=== PATIENT | male | born 1985 | race Caucasian/White ===

== ENCOUNTER 2021-02-12 13:32 | Outpatient (REF) | payer BC, SELFPAY | END 2021-02-12 13:33 | disposition home or self-care (01) | LOC: HO.LAB 13:32 | PROVIDERS: Visit Provider Internal Medicine | DX: Z20.822 Contact with and (suspected) exposure to COVID-19 (principal) | CPT/HCPCS: C9803; U0003; U0005 ==

== ENCOUNTER 2021-09-15 09:33 | Outpatient (REF) | payer BC, SELFPAY ==
[2021-09-15 10:27] LABS: Hematocrit 44.2 % (42.0-52.0); Hemoglobin 14.6 g/dl (14.0-18.0); Mean Corpuscular Hemoglobin 28.6 pg (27.0-33.0); Mean Corpuscular Volume 86.7 fL (80.0-98.0); Mean Platelet Volume 11.1 fL (9.4-12.4); Platelet Count 236 X10*3/uL (160-400); Red Cell Distribution Width 12.4 % (11.0-16.0); White Blood Count 9.2 X10*3/uL (4.8-10.8)
[2021-09-15 10:56] LABS: Estimated Average Glucose 103 mg/dL; Hemoglobin A1c % 5.2 %
[2021-09-15 11:12] LABS: Alanine Aminotransferase 49 U/L (0-40); Albumin Level 4.5 g/dL (3.5-5.0); Alkaline Phosphatase 87 U/L (39-117); Anion Gap 11 (12-20); Aspartate Amino Transferase 41 U/L (5-37); Bilirubin Total 0.5 mg/dL (0.0-1.0); Blood Urea Nitrogen 9 mg/dL (9-16); Calcium 9.5 mg/dL (8.4-10.2); Carbon Dioxide 25 mmol/L (22-29); Chloride 106 mmol/L (96-108); Cholesterol 182 mg/dL; Estimated Glomerular Filt Rate > 60; Glucose Fasting 93 mg/dL (60-99); HDL Cholesterol 39 mg/dL; LDL Cholesterol Calculated 129 mg/dl; Potassium 4.3 mmol/L (3.3-5.1); Sodium 138 mmol/L (135-145); Total Protein 7.4 g/dL (6.5-8.0); Triglycerides 74 mg/dL
[2021-09-15 11:35] LABS: TSH reflex Free T4 0.59 uIU/mL (0.32-4.0)
== END 2021-09-15 09:34 | disposition home or self-care (01) ==
LOC: HO.LAB 09:33
PROVIDERS: PCP Physician Assistant; Visit Provider Physician Assistant
DX: Z13.220 Encounter for screening for lipoid disorders (principal); Z13.29 Encounter for screening for other suspected endocrine disorder
CPT/HCPCS: 36415; 80053; 80061; 83036; 84443; 85027

== ENCOUNTER 2021-10-08 15:50 | Outpatient (REF) | payer BC, SELFPAY ==
--- NOTE | ~2021-10-08 | US_ITS ---
EXAMINATION: US TARGETED RIGHT ANTERIOR PROXIMAL-MID THIGH. CLINICAL INFORMATION: Localized swelling/mass and lump. COMPARISON: None TECHNIQUE: Targeted ultrasound of the right anterior proximal to mid thigh was performed corresponding to the site of the palpable lumps as was pointed out by the patient at the time of the examination. FINDINGS: At the proximal thigh underneath the subcutaneous fat along the intermuscular plane, there is an ellipsoidal echogenic solid-appearing avascular mass identified oriented parallel to the skin, measures 1.9 x 1.8 x 0.8 cm. At the mid thigh anteriorly underneath the subcutaneous fat, along the intermuscular plane, similar to the previously described abnormality, there is a second circumscribed avascular hypoechoic mass identified oriented parallel to the skin, measures 1.4 x 1.9 x 0.6 cm. There are no abnormal lymph nodes identified around these masses. No evidence of any abnormal fluid collection. US/US extremity nonvascular currie IMPRESSION: Corresponding to the palpable lump at the right anterior proximal to mid thigh, circumscribed solid avascular ellipsoidal masses identified, measures approximately 1.9 cm each at their maximum dimension, indeterminate etiology, may represent mesenchymal neoplasm including lipoma or other solid mesenchymal tumor. Surgical consultation for possible excisional biopsy and/or follow-up imaging surveillance to ensure stability as appropriate is recommended.
== END 2021-10-08 15:51 | disposition home or self-care (01) ==
LOC: HO.US 15:50
PROVIDERS: Visit Provider Physician Assistant
DX: R22.43 Localized swelling, mass and lump, lower limb, bilateral (principal)
CPT/HCPCS: 76882

== ENCOUNTER 2022-06-01 09:11 | Emergency (ER) | payer BC, SELFPAY ==
--- NOTE | ~2022-06-01 | CT_ITS ---
EXAMINATION: CT ABDOMEN AND PELVIS WITH CONTRAST CLINICAL INFORMATION: Right flank/testicular pain and hematuria. COMPARISON: None TECHNIQUE: Multidetector volumetric images were obtained from the superior aspect of the liver through the pubic symphysis following administration 85 mL of Omnipaque 350 intravenous contrast. Sagittal and coronal reformatted images were obtained on the technologist's workstation. Oral contrast: No This CT examination was performed using dose optimization techniques as appropriate, variously including the following: *Automated exposure control *Adjustment of mA and/or kV according to patient size (this includes techniques or standardized protocols for targeted exams where dose is matched to indication/reason for exam; i.e. extremities or head) *Use of iterative reconstruction technique DLP: 501 mGy-cm FINDINGS: LUNG BASES: The visualized lung bases are unremarkable. LIVER, GALLBLADDER, AND BILIARY TREE: The liver is normal in size, shape, and attenuation. No focal hepatic lesion or biliary ductal dilatation is present. The gallbladder is unremarkable with no evidence of radiopaque gallstones, gallbladder wall thickening, or obvious pericholecystic inflammatory changes. PANCREAS: Unremarkable. SPLEEN: Unremarkable. ADRENAL GLANDS: Unremarkable. KIDNEYS AND URETERS: The kidneys are normal in size, shape, and attenuation. No hydronephrosis, hydroureter, or calculi seen. No perinephric stranding. There are small hypodense nonenhancing cyst upper pole right kidney BLADDER: There is mild bladder wall thickening without any enhancing mass or radiopaque calculi. GASTROINTESTINAL TRACT: The small and large bowel are unremarkable. The appendix is unremarkable. ABDOMINAL WALL: No significant hernia is appreciated. LYMPH NODES: No abnormal size inguinal or pelvic lymph nodes seen. VASCULAR: Unremarkable. PELVIC VISCERA: No pelvic mass visualized. There are surgical yefri superior to the urinary bladder along the anterior bladder wall likely previous intervention. No abnormal size inguinal or pelvic lymph nodes seen. OSSEOUS STRUCTURES: Unremarkable. CT/CT abdomen pelvis w IV con IMPRESSION: 1. No acute intra-abdominal process seen. 2. No radiopaque urolith or hydroureteronephrosis. Small cyst upper pole right kidney. Fleischner guidelines were followed.
[2022-06-01 09:19] VITALS: BP 123/79; PULSE 80; RESP 18; TEMP 36.4; O2SAT 98; BMI 29.9
--- NOTE | 2022-06-01 09:25 | ED.MALEGU ---
HPI - Male Genitourinary General Chief complaint: Urogenital-Male Stated complaint: Blood in Urine Pain Time Seen by Provider: 06/01/22 09:24 Source: patient Mode of arrival: ambulatory Limitations: no limitations History of Present Illness HPI Narrative: 36-year-old male who is healthy presents with tactile fever, chills, cough, runny nose for 2 days. Yesterday he started to developed right-sided flank pain with radiation to the right testicle and into the rectum with pressure and discomfort. This morning had 1 episode of hematuria but no other urinary symptoms. No penile discharge, rashes or lesions. No nausea, vomiting, diarrhea, constipation. Patient reports he is sexually active with 1 female partner. No new sexual partners. Related Data Previous Rx's Medication Instructions Recorded ibuprofen 600 mg tablet 600 mg PO Q6H PRN pain #20 tabs 06/01/22 levofloxacin 750 mg tablet 750 mg PO DAILY 7 days #7 tabs 06/01/22 phenazopyridine 200 mg tablet 200 mg PO TID PRN pain 6 doses #15 06/01/22 (Pyridium) tabs Allergies Allergy/AdvReac Type Severity Reaction Status Date / Time No Known Allergies Allergy Verified 09/22/21 15:21 [No Known Allergies*] Review of Systems Review of Systems: Yes all other systems are reviewed and are negative Constitutional: Constitutional: Reports no additional constitutional complaints, Denies body ache(s), Reports chills, Reports fever(s), Denies headache(s) and Denies weakness Eyes: Eyes: Reports no additional eye complaints and Denies change in vision ENT: Reports system reviewed and no additional complaints, except as documented, Denies dizziness, Denies headache(s), Denies nasal congestion, Reports nasal discharge and Denies neck pain Cardiovascular: Cardiovascular: Reports no additional cardiovascular complaints, Denies chest pain, Denies leg edema and Denies dyspnea Respiratory: Respiratory: Reports no additional respiratory complaints, Reports cough and Denies dyspnea Gastrointestinal: Gastrointestinal: Reports no additional gastrointestinal complaints, Reports abdominal pain, Denies diarrhea, Denies nausea and Denies vomiting Comments: +rectal pain/pressure Genitourinary: Genitourinary: Reports hematuria, Denies dysuria, Reports flank pain, Denies penile discharge, Denies testicular mass, Reports testicular pain, Denies urinary frequency, Denies urinary hesitancy, Denies urinary incontinence and Denies urinary urgency Musculoskeletal: Musculoskeletal: Reports no additional musculoskeletal complaints, Reports back pain, Denies arthralgias, Denies joint swelling, Denies neck pain, Denies numbness and Denies tingling Integumentary/Breasts: Skin/Breast: Reports system reviewed and no additional complaints, except as docu and Denies rash Neurologic: Reports system reviewed and no additional complaints, except as documented, Denies Abnormal speech present, Denies dizziness, Denies headache(s), Denies numbness, Denies tingling and Denies weakness PMF Past Medical History Attestation statement: The following information was validated with the patient. Source: old records reviewed and nursing notes reviewed Family History Family History Mother No problems noted. Father No problems noted. Social History Social History Housing: House Alcohol intake: current Alcohol intake frequency: a few times a month Alcohol type: beer Patient Tobacco Use Status: Never used Tobacco e-Cigarette/Vaping Use: Never Used Substance Use Type: Marijuana Advance Directives: No Advance Directives Information Provided: Yes service: No Current occupational status: employed Current occupation: [employer] Physical Exam Vital Signs: Vital Signs: Last Vital Signs Temp 98.2 F 06/01/22 12:00 Pulse 68 06/01/22 12:00 Resp 16 06/01/22 12:00 BP 108/55 L 06/01/22 12:00 Pulse Ox 97 06/01/22 12:00 O2 Del Method 06/01/22 12:00 BMI result Body Mass Index 29.9 Const: General: cooperative, healthy appearing, comfortable and no acute distress Orientation/consciousness: patient oriented x3 Limitations: no limitations HEENT: Head: Yes normal to inspection Ears: hearing grossly normal bilaterally and TM's normal bilaterally General nose exam: Normal external nose present Face and sinus: Yes normal facial exam Mouth: Normal oral and palatal mucosa present Throat: Yes posterior oropharynx normal, Yes tonsils normal and Yes uvula midline Eyes: General: appearance normal, both eyes and all related structures Pupils: Equal, round and reactive pupils present Neck: Neck: Yes normal visual inspection, Yes full ROM, Yes no lymphadenopathy and Yes no meningeal signs Chest: Chest palpation & inspection: normal inspection of the chest Resp: Effort & Inspection: normal respiratory effort Auscultation: clear to auscultation bilaterally Cardio: Rate: regular rate Rhythm: regular rhythm Peripheral pulses: Peripheral pulses 2+ throughout GI: Inspection: Yes normal to inspection Palpation (GI): Soft to palpation and Tenderness to palpation present (GI) (right side abdomen-no rebound or guarding) Auscultation: normal bowel sounds : General: Yes CVA tenderness (R CVAT) Back/Spine/Pelvis: Back: CVA tenderness (R CVAT) Thoracic/Lumbar Spine: thoracic and lumbar spine normal to inspection Skin: General skin exam: no rashes or lesions noted Neuro: General: patient oriented x3, no meningeal signs, no focal motor deficits and normal sensation to monofilament Cranial nerves: Yes Equal, round and reactive pupils present Cognition (Neuro): normal cognition Speech: No Abnormal speech present Gait exam (Neuro): Normal gait present Motor exam (neuro): 5/5 motor strength present throughout Extrem: General: Yes normal to inspection, Yes no pedal edema and Yes no calf tenderness Course Course Course Narrative: 1127-UA is consistent UTI. At this time infection is suspected. Antibiotics ordered Reevaluation(s) Reevaluation #1: 1330-CT of the abdomen and pelvis shows no acute finding. There are surgical yefri seen. Patient reports he had surgery as an and the lower abdomen but he is unsure what type of surgery. He did have recurrent UTIs as an infant as well. No signs of prostatitis seen on CT. Patient will be treated for UTI and possible early pyelonephritis with complaints of right flank pain. Patient overall nontoxic appearing pain is resolved after 1 dose of Toradol. Patient tolerating p.o.. No fever here. Will discharge home with course of antibiotics. Reviewed worrisome signs and symptoms of when to return to the emergency department. Comfortable discharge home. Medications Administered Discontinued Medications Generic Name Dose Route Start Last Admin Trade Name Freq PRN Reason Stop Dose Admin Sodium Chloride 1,000 mls @ 999 mls/hr 06/01/22 09:34 06/01/22 12:49 Ns IV 06/01/22 10:34 Infused .Q1H1M STA Infusion Ceftriaxone Sodium 1 gm/ 50 mls @ 100 mls/hr 06/01/22 11:27 06/01/22 12:49 Sodium Chloride IV 06/01/22 11:56 Infused ONCE ONE Infusion Iohexol 85 ml 06/01/22 11:39 06/01/22 11:39 Iohexol 350 Mg/Ml 75 Ml Infus..Btl IV 06/01/22 11:40 85 ml ONCE ONE Administration Ketorolac Tromethamine 30 mg 06/01/22 09:34 06/01/22 09:52 Ketorolac Tromethamine 30 Mg/Ml Vial IVPUSH 06/01/22 09:35 30 mg ONCE ONE Administration Medical Decision Making Medical Decision Making MDM Narrative: 36-year-old male here with 2-3 days of flu-like symptoms with right-sided flank pain with radiation to the right abdomen and right testicle with rectal pain and pressure since yesterday with an episode of hematuria this morning. Will need labs, UA, CT, COVID screen Differential Diagnosis Differential Diagnoses: The differential diagnosis associated with the presentation includes Consider prostatitis, renal colic Low concern for torsion Lab Data [facility] Lab Attestation statement: I reviewed the patient's lab results. Result Diagrams: 06/01/22 09:41 06/01/22 09:41 Labs: Lab Results 06/01/22 06/01/22 06/01/22 Range/Units 09:38 09:41 09:41 WBC 12.0 H (4.8-10.8) X10*3/uL RBC 5.03 (4.60-5.80) X10*6/uL Hgb 14.6 (14.0-18.0) g/dl Hct 43.2 (42.0-52.0) % MCV 85.9 (80.0-98.0) fL MCH 29.0 (27.0-33.0) pg MCHC 33.8 (31.0-36.0) g/dl RDW 12.3 (11.0-16.0) % Plt Count 216 (160-400) X10*3/uL MPV 11.0 (9.4-12.4) fL Absolute Nucleated RBC 0.000 (0.0-0.012) X10*3/uL Nucleated RBC % (auto) 0.0 (0.0-0.2) /100WBC Sodium 137 (135-145) mmol/L Potassium 3.8 (3.3-5.1) mmol/L Chloride 104 (96-108) mmol/L Carbon Dioxide 29 (22-29) mmol/L Anion Gap 8 L (12-20) BUN 9 (9-16) mg/dL Creatinine 0.88 (0.5-1.4) mg/dL Estim Creat Clear Calc 114.1 Estimated GFR > 60 Random Glucose 106 (60-115) mg/dL Lactic Acid (0.5-2.0) mmol/L Calcium 9.3 (8.4-10.2) mg/dL Total Bilirubin 0.9 (0.0-1.0) mg/dL Direct Bilirubin 0.3 (0.0-0.5) mg/dL AST 16 (5-37) U/L ALT 34 (0-40) U/L Alkaline Phosphatase 76 (39-117) U/L Total Creatine Kinase (38-174) U/L Total Protein 7.2 (6.5-8.0) g/dL Albumin 4.4 (3.5-5.0) g/dL Urine Color Urine Appearance Urine pH (5.0-9.0) Ur Specific Henderson (1.005-1.025) Urine Protein (Neg-Trace) mg/dL Urine Glucose (UA) (Negative) mg/dL Urine Ketones (Negative) mg/dL Urine Blood (Negative) Urine Nitrite (Negative) Ur Leukocyte Esterase (Negative) Urine RBC (0-2) /HPF Urine WBC (0-5) /HPF Ur Squamous Epith Cells (0-2) /HPF Urine Bacteria (None Seen) Hyaline Casts (0-2) /LPF COVID-19 (EULALIO) Negative (Negative) COVID-19 Clin Com See Note 06/01/22 06/01/22 06/01/22 Range/Units 09:41 09:41 10:49 WBC (4.8-10.8) X10*3/uL RBC (4.60-5.80) X10*6/uL Hgb (14.0-18.0) g/dl Hct (42.0-52.0) % MCV (80.0-98.0) fL MCH (27.0-33.0) pg MCHC (31.0-36.0) g/dl RDW (11.0-16.0) % Plt Count (160-400) X10*3/uL MPV (9.4-12.4) fL Absolute Nucleated RBC (0.0-0.012) X10*3/uL Nucleated RBC % (auto) (0.0-0.2) /100WBC Sodium (135-145) mmol/L Potassium (3.3-5.1) mmol/L Chloride (96-108) mmol/L Carbon Dioxide (22-29) mmol/L Anion Gap (12-20) BUN (9-16) mg/dL Creatinine (0.5-1.4) mg/dL Estim Creat Clear Calc Estimated GFR Random Glucose (60-115) mg/dL Lactic Acid 0.8 (0.5-2.0) mmol/L Calcium (8.4-10.2) mg/dL Total Bilirubin (0.0-1.0) mg/dL Direct Bilirubin (0.0-0.5) mg/dL AST (5-37) U/L ALT (0-40) U/L Alkaline Phosphatase (39-117) U/L Total Creatine Kinase 85 (38-174) U/L Total Protein (6.5-8.0) g/dL Albumin (3.5-5.0) g/dL Urine Color Yellow Urine Appearance Clear Urine pH 6.5 (5.0-9.0) Ur Specific Henderson 1.010 (1.005-1.025) Urine Protein Negative (Neg-Trace) mg/dL Urine Glucose (UA) Negative (Negative) mg/dL Urine Ketones Negative (Negative) mg/dL Urine Blood Moderate (2+) H (Negative) Urine Nitrite Negative (Negative) Ur Leukocyte Esterase Moderate (2+) H (Negative) Urine RBC 11-20 H (0-2) /HPF Urine WBC 21-50 H (0-5) /HPF Ur Squamous Epith Cells 0-2 (0-2) /HPF Urine Bacteria None Seen (None Seen) Hyaline Casts 0-2 (0-2) /LPF COVID-19 (EULALIO) (Negative) COVID-19 Clin Com Independent Interpretation I performed an independent interpretation of an: CT Scan (CT abdomen pelvis shows no acute finding-I independently reviewed the CT scan myself) Radiology Impression Discussion of test interpretation with radiology: I have reviewed the radiologist's reading. Radiologist Impression: FINDINGS: LUNG BASES: The visualized lung bases are unremarkable.? LIVER, GALLBLADDER, AND BILIARY TREE: The liver is normal in size, shape, and attenuation. No focal hepatic lesion or biliary ductal dilatation is present. The gallbladder is unremarkable with no evidence of radiopaque gallstones, gallbladder wall thickening, or obvious pericholecystic inflammatory changes.? PANCREAS: Unremarkable.? SPLEEN: Unremarkable.? ADRENAL GLANDS: Unremarkable.? KIDNEYS AND URETERS: The kidneys are normal in size, shape, and attenuation. No hydronephrosis, hydroureter, or calculi seen. No perinephric stranding. There are small hypodense nonenhancing cyst upper pole right kidney BLADDER: There is mild bladder wall thickening without any enhancing mass or radiopaque calculi.? GASTROINTESTINAL TRACT: The small and large bowel are unremarkable. The appendix is unremarkable.? ABDOMINAL WALL: No significant hernia is appreciated.? LYMPH NODES: No abnormal size inguinal or pelvic lymph nodes seen. VASCULAR: Unremarkable. PELVIC VISCERA: No pelvic mass visualized. There are surgical yefri superior to the urinary bladder along the anterior bladder wall likely previous intervention. No abnormal size inguinal or pelvic lymph nodes seen. OSSEOUS STRUCTURES: Unremarkable.? CT/CT abdomen pelvis w IV con IMPRESSION: 1.? No acute intra-abdominal process seen. 2.? No radiopaque urolith or hydroureteronephrosis. Small cyst upper pole right kidney. ? Independent Historian Clinical information obtained from an independent historian. History obtained from or confirmed by: Spouse Discharge Plan Discharge Clinical Impression: Urinary tract infection, Pyelonephritis Patient Disposition: Home, Self-Care Instructions: Urinary Tract Infection in Men (ED), Kidney Infection (ED) Additional Instructions: Increase fluids, rest Your CT scan shows no signs of kidney stone. You do have a UTI. You likely have an early kidney infection. Start taking her antibiotics tomorrow. Take the pain medication as needed. Return for any worsening symptoms. Prescriptions: New levofloxacin 750 mg tablet 750 mg PO DAILY 7 Days Qty: 7 0RF phenazopyridine [Pyridium] 200 mg tablet 200 mg PO TID PRN (Reason: pain) Qty: 15 0RF ibuprofen 600 mg tablet 600 mg PO Q6H PRN (Reason: pain) Qty: 20 0RF Referrals: Seb Gomez PA-C [Primary Care Provider] - 1 week Stand Alone Forms: Work/School Release Interventions: ED Discharge Assessment Last Done: 06/01/22 14:01 Discharge Date/Time: 06/01/22 14:02
[2022-06-01] MEDS: 0.9 % Sodium Chloride 1,000 ML 999 ML IV (09:52)
[2022-06-01] MEDS: Ketorolac Tromethamine 30 MG/ML VIAL IVPUSH (09:52)
[2022-06-01 09:57] LABS: Hematocrit 43.2 % (42.0-52.0); Hemoglobin 14.6 g/dl (14.0-18.0); Mean Corpuscular HGB Conc 33.8 g/dl (31.0-36.0); Mean Corpuscular Volume 85.9 fL (80.0-98.0); Platelet Count 216 X10*3/uL (160-400); Red Blood Count 5.03 X10*6/uL (4.60-5.80); Red Cell Distribution Width 12.3 % (11.0-16.0)
[2022-06-01 10:07] LABS: Lactic Acid 0.8 mmol/L (0.5-2.0)
[2022-06-01 10:10] LABS: COVID-19 Test Negative (Negative); IDNOW Serial# 16C4AD1C
[2022-06-01 10:11] LABS: Alanine Aminotransferase 34 U/L (0-40); Albumin Level 4.4 g/dL (3.5-5.0); Alkaline Phosphatase 76 U/L (39-117); Anion Gap 8 (12-20); Aspartate Amino Transferase 16 U/L (5-37); Bilirubin Direct 0.3 mg/dL (0.0-0.5); Bilirubin Total 0.9 mg/dL (0.0-1.0); Blood Urea Nitrogen 9 mg/dL (9-16); Calcium 9.3 mg/dL (8.4-10.2); Carbon Dioxide 29 mmol/L (22-29); Chloride 104 mmol/L (96-108); Creatinine Clr Calc Pharmacy 114.1; Estimated Glomerular Filt Rate > 60; Glucose Random 106 mg/dL (60-115); Potassium 3.8 mmol/L (3.3-5.1); Sodium 137 mmol/L (135-145); Total Protein 7.2 g/dL (6.5-8.0)
[2022-06-01 11:09] LABS: Appearance Urine Clear; Color Urine Yellow; Glucose Urine UA Negative (Negative); Leukocyte Esterase Urine Moderate (2+) (Negative); Nitrite Urine Negative (Negative); PH 6.5 (5.0-9.0); UMIC TRIGGER UACC YES; Urine Blood Moderate (2+) (Negative); Urine Ketones Negative (Negative); Urine Protein Negative (Neg-Trace)
[2022-06-01 11:14] LABS: Bacteria Urine None Seen (None Seen); Hyaline Casts Urine 0-2 /LPF (0-2); Squamous Epithelial Cell Urine 0-2 /HPF (0-2); UACC Culture Trigger YES; WBC Urine 21-50 /HPF (0-5)
[2022-06-01] MEDS: iohexoL 350 MG/ML 75 ML INFUS..BTL 85 ML IV (11:39)
[2022-06-01] MEDS: cefTRIAXone sodium 1 GM in 0.9 % Sodium Chloride 50 ML IV (11:50)
[2022-06-01 12:00] VITALS: BP 108/55; PULSE 68; RESP 16; TEMP 36.8; O2SAT 97
[2022-06-01 15:10] LABS: CT PCR NOT DETECTED (Not Detect.); NG PCR NOT DETECTED (Not Detect.)
== END 2022-06-01 14:02 | disposition home or self-care (01) ==
PROVIDERS: Nurse Practitioner Family; Emergency Provider Emergency Medicine Emergency Medical Services; PCP Physician Assistant
DX: N39.0 Urinary tract infection, site not specified (principal); N12 Tubulo-interstitial nephritis, not specified as acute or chronic; Z20.822 Contact with and (suspected) exposure to COVID-19; F12.90 Cannabis use, unspecified, uncomplicated
CPT/HCPCS: 0353U; 36415; 74177; 80048; 80076; 81001; 81003; 82550; 83605; 85027; 87040; 87086; 87635; 96361; 96374; 96375; 99284; J0696; J1885; Q9967

== ENCOUNTER 2022-06-21 15:47 | Outpatient (REF) | payer BC, SELFPAY ==
--- NOTE | ~2022-06-21 | US_ITS ---
EXAMINATION: US SCROTUM CLINICAL INFORMATION: Right posterior scrotum/perineum pressure. Lower abdominal pain.. COMPARISON: 03/27/2019 TECHNIQUE: A sonogram of the scrotum was performed assessing rodriguez-scale appearance and color Doppler flow. Spectral Doppler analysis of the arterial and venous flow were performed in the testes bilaterally. FINDINGS: RIGHT: Right testicle measures 4.4 x 2.3 x 3 cm, volume 15.8 mL. No focal testicular parenchymal lesions are visualized. Single calcification again noted in the right testicle laterally. Spectral Doppler analysis of the arterial and venous flow is normal in the right testis. Right epididymal head is normal in size. No right hydrocele is seen. Small varicocele present. Right epididymal Doppler flow is normal. No focal abnormality in the described area of pain. LEFT: Left testicle measures 4.2 x 2.3 x 2.9 cm, volume 14.1 mL. No focal testicular parenchymal lesions are visualized. A single small calcification is again noted. Spectral Doppler analysis of the arterial and venous flow is normal in the left testis. Left epididymal head is normal in size. Small varicocele present. Small complex hydrocele with septations. Left epididymal Doppler flow is normal. US/US scrotum IMPRESSION: Small bilateral varicoceles. Small complex left hydrocele with septations. No focal abnormality in the region of concern.
== END 2022-06-21 15:48 | disposition home or self-care (01) ==
LOC: HO.US 15:47
PROVIDERS: PCP Physician Assistant; Visit Provider Nurse Practitioner Family
DX: R10.30 Lower abdominal pain, unspecified (principal)
CPT/HCPCS: 76870

== ENCOUNTER → 2022-08-05 08:49 | Outpatient (BNVA) | payer BC, SELFPAY | PROVIDERS: PCP Physician Assistant; Visit Provider Urology | DX: Z13.89 Encounter for screening for other disorder (principal) ==

== ENCOUNTER 2023-08-17 11:01 | Outpatient (AMB) | payer OTHER, SELFPAY ==
[2023-08-17 11:12] VITALS: BP 100/60; PULSE 60; O2SAT 99; BMI 31.6
--- NOTE | 2023-08-17 11:12 | A.OFFPC_ITS ---
Vital Signs 08/17/23 11:12 Height 5 ft 5 in Weight 190 lb BMI 31.6 BP 100/60 Blood Pressure Location Lt brachial Position Sitting Pulse 60 Pulse Source Pulse Oximeter Pulse Oximetry (%) 99 Oxygen Delivery Method Room Air Intake Visit Reasons: pain on left arm Intake Note: The patient is here due to left wrist pain accompanied by numbness persisting for the past nine months. Pt spouse has observed that the pain intensifies and lasts longer when lifting heavy objects. Program Strategist Required: No Accompanied by: Self / Same As Patient Allergies No Known Allergies [No Known Allergies*] Allergy (Verified 08/17/23 11:17) Tobacco use date assessed: 08/17/23 Dental Screening Dental Screen Date: 08/17/23 Did you have a dental visit in the last 12 months?: Yes Did you have a dental problem in the last 6 months where you did not have access to dental care?: No Was dental information given to patient?: Patient has dentist HPI pain on left arm HPI Details Patient is a 37-year-old male here today for problem visit. He has been reporting left wrist pain over the last 9 months. It is worse lifting and using upper extremities. Denies any acute trauma to his left wrist. 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 Reports some of his symptoms worsened at night with more wrist and hand numbness and tingling. [facility] Family History Mother No problems noted. Father No problems noted. Social History Housing: House Alcohol intake: current Alcohol intake frequency: a few times a month Alcohol type: beer Patient Tobacco Use Status: Never used Tobacco e-Cigarette/Vaping Use: Never Used Substance Use Type: Marijuana service: No Current occupational status: employed Current occupation: [employer] Cognitive needs: No Hearing needs: No Vision needs: No Questionnaire PHQ-9 Over the last 2 weeks, how often have you been bothered by any of the following problems? 1. Little interest or pleasure in doing things: not at all 2. Feeling down, depressed, or hopeless: not at all 3. Trouble falling or staying asleep, or sleeping too much: not at all 4. Feeling tired or having little energy: not at all 5. Poor appetite or overeating: not at all 6. Feeling bad about yourself - or that you are a failure or have let yourself or your family down: not at all 7. Trouble concentrating on things, such as reading the newspaper or watching television: not at all 8. Moving or speaking so slowly that other people could have noticed. Or the opposite - being so fidgety or restless that you have been moving around a lot more than usual: not at all 9. Thoughts that you would be better off or of hurting yourself in some way: not at all Total score: 0 Depression Screening Interpretation: Negative Depression Screening Done: Yes 74184 - PHQ-9 Billing: Yes Source: Developed by Drs. Xander Garzon, Isha Martinez, Tu Dailey and colleagues, with an educational angella from [employer]. Thrive Questionnaire Date Thrive assessed: 08/17/23 I am a: Patient What is your living situation today?: I have a steady place to live Within the past 12 months, did the food you bought not last and you didn't have the money to get more?: Never true Within the past 12 months, did you worry whether your food would run out before you got money to buy more?: Never true Do you have trouble paying for medicines?: No Do you have trouble getting transportation to medical appointments?: No Do you have trouble paying your heating and electricity bill?: No Do you have trouble taking care of your child, family member or friend?: No Do you have trouble with day-to-day activities such as bathing, preparing meals, shopping, managing finances, etc.?: No Are you currently unemployed and looking for a job?: No Are you interested in more education?: No Please select the resources that you would like help with: None Currently or been in a relationship where the following occur: no concerns reported THRIVE Score: 0 AUDIT C Alcohol Use Questionnaire (AUDIT-C) 1. How often do you have a drink containing alcohol?: Monthly or less 2. How many drinks containing alcohol do you have on a typical day when you are drinking?: 1 or 2 3. How often do you have six or more drinks on one occasion?: Never Total Score: 1 EMILIE-7 AMB Questionnaire EMILIE-7 Date EMILIE - 7 assessed: 08/17/23 Feeling nervous, anxious, or on edge: 0 = Not at all Not being able to stop or control worryin = Not at all Worrying too much about different things: 0 = Not at all Trouble relaxin = Not at all Being so restless that it is hard to sit still: 0 = Not at all Becoming easily annoyed or irritable: 0 = Not at all Feeling afraid as if something awful might happen: 0 = Not at all Total EMILIE-7 score (0-4 normal; 5-9 mild; 10-14 moderate; 15-21 severe): 0 Source: Developed by Drs. Xander Garzon, Isha Martinez, Tu Dailey and colleagues, with an educational angella from [employer]. EMILIE-7 Assessment Billing EMILIE-7 Assessment Tool: EMILIE-7 Assessment 01942 Review of Systems Const Denies headache(s) Eyes Denies loss of vision ENT Denies vertigo, Denies dizziness, Denies headache(s) and Denies sore throat Card Denies chest pain, Denies leg edema and Denies lightheadedness Resp Denies cough, Denies hemoptysis and Denies wheezing GI Denies abdominal pain, Denies melena, Denies constipation, Denies diarrhea and Denies vomiting Denies dysuria, Denies urinary frequency and Denies urinary urgency Musc Denies arthralgias, Denies joint swelling, Denies numbness and Denies tingling Neuro Denies Abnormal speech present, Denies behavioral changes, Denies vertigo, Denies dizziness, Denies headache(s), Denies loss of vision, Denies memory loss, Denies numbness and Denies tingling Psych Denies anxiety, Denies behavioral changes, Denies depression, Denies memory loss and Denies panic attacks Nilson/Lymph Denies easy bleeding and Denies easy bruising Aller/Immun Denies wheezing Physical exam (Primary Care) Vital Signs: Last Vital Signs Pulse 60 08/17/23 11:12 BP 100/60 08/17/23 11:12 Pulse Ox 99 08/17/23 11:12 Oxygen Delivery Method Room Air 08/17/23 11:12 BMI result Body Mass Index 31.6 Tobacco/Smoking Status: Tobacco use Status Tobacco use date assessed 08/17/23 08/17/23 11:21 Patient Tobacco Use Status Never used Tobacco 08/17/23 11:21 e-Cigarette/Vaping Use Never Used 08/17/23 11:21 PHQ-9: PHQ-9 Score PHQ-9: Total score 0 08/17/23 11:34 Depression Screening Interpretation: Negative Thrive Assessment: Date of Thrive Assessment Date Thrive assessed 08/17/23 08/17/23 11:21 Currently or been in a relationship where the following occur: no concerns reported Const General: healthy appearing, no acute distress, alert and awake Nutritional Appearance: well nourished Orientation/consciousness: oriented to person, oriented to place and oriented to time HENMT Ears: TM's normal bilaterally General nose exam: Normal nasal mucous membranes and turbinates present Eyes Conjunctivae: conjunctivae normal Sclerae: sclerae normal Pupils: Equal, round and reactive pupils present Neck Neck: Yes no lymphadenopathy and Yes no JVD Thyroid: Thyroid normal Carotids: no bruits Resp Effort & Inspection: normal respiratory effort and not tachypneic Auscultation: no crackles, no rales, no rhonchi and no wheezes Cardio Rate: regular rate Rhythm: regular rhythm Heart sounds: no murmurs and normal S1 and S2 GI Palpation (GI): Soft to palpation, nontender, no hepatomegaly and no splenomegaly Auscultation: normal bowel sounds Skin General skin exam: no rashes or lesions noted and dry skin Neuro General: oriented to person, oriented to place and oriented to time Cranial nerves: Yes Equal, round and reactive pupils present Speech: No Abnormal speech present Gait exam (Neuro): Normal gait present Motor exam (neuro): no tremor noted Extrem Other: POSITIVE PRAYERS AND POSITIVE PHALEN'S TEST IN THE RIGHT HAND. Right upper extremity: full ROM Left upper extremity: full ROM Right lower extremity: full ROM; no edema Left lower extremity: full ROM; no edema Psych Mental Status: mental status grossly normal Speech and movement: Normal speech and movement present Affect: normal affect Attitude: cooperative Thought process: Normal thought process present Assessment and Plan Assessment & Plan (1) Cubital tunnel syndrome on left: Code(s): G56.22 - Lesion of ulnar nerve, left upper limb Plan: Patient's signs and symptoms most concerning for cubital verses carpal tunnel syndrome. Will send for EMG study to confirm suspicions of a neuropathy. Advised on use of a right wrist splint at night to help keep wrist in neutral position. Will refer to occupational therapy and orthopedics for treatment. (2) Lump of right thigh: Code(s): R22.41 - Localized swelling, mass and lump, right lower limb Plan: Continues to have palpable lump over his upper anterior proximal thigh he would like evaluated. He does report when there is cold weather the area does start to get more tender to palpation per send for nonvascular ultrasound to evaluate for a lipoma versus a varicose vein Orders: Orders US extremity nonvascular currie Today R22.41 - Localized swelling, mass and lump, right lower limb NE electromyogram (EMG) Today G56.22 - Lesion of ulnar nerve, left upper limb OT Evaluation and Treatment Today G56.22 - Lesion of ulnar nerve, left upper limb Referrals Orthopedics Referral G56.22 - Lesion of ulnar nerve, left upper limb Medications: New meloxicam 15 mg PO DAILY 14 days 14 tabs 0RF G56.22 - Lesion of ulnar nerve, left upper limb Coding Level of Care Code Est Pt Level 3 (45536) Diagnoses Cubital tunnel syndrome on left G56.22 Lump of right thigh R22.41 Additional Codes EMILIE-7 Assessment Billing - EMILIE-7 Assessment Tool: EMILIE-7 Assessment 49804 ([id number])
== END 2023-08-17 11:49 | disposition home or self-care (01) ==
PROVIDERS: PCP Physician Assistant; Visit Provider Physician Assistant
DX: G56.22 Lesion of ulnar nerve, left upper limb (principal); R22.41 Localized swelling, mass and lump, right lower limb
CPT/HCPCS: 99213

== ENCOUNTER 2023-08-22 14:30 | Outpatient (REF) | payer OTHER, SELFPAY ==
--- NOTE | ~2023-08-22 | US_ITS ---
EXAMINATION: ULTRASOUND SOFT TISSUES RIGHT UPPER THIGH CLINICAL INFORMATION: Pain, lump upper right thigh, evaluate for lipoma. Patient states same area of concern as when patient was here for exam of 10/08/2021. COMPARISON: 10/08/2021. TECHNIQUE: Targeted ultrasound images were obtained by the braille and talking books clerk of the area of concern as indicated by the patient in the upper anterior mid right thigh. Radiologist was not in attendance. Images were later provided for interpretation. FINDINGS: There is a 2.2 x 0.6 x 1.4 cm heterogeneous, slightly echogenic lesion with well-circumscribed margins and no demonstrable internal vascularity in the area of concern indicated by the patient in the upper anterior right thigh. A similar-appearing 0.8 x 0.4 x 0.8 cm lesion is seen in the second area indicated by the patient in the anterior [id number] right thigh. Previous exam of 10/08/2021 demonstrated a 1.9 x 0.8 x 1.8 cm and 1.4 x 0.6 x 1.9 cm similar-appearing lesions. US/US extremity nonvascular currie IMPRESSION: Areas of concern indicated by patient correlate with 2 superficial, avascular, wider than tall, slightly hyperechoic masses of indeterminate etiology. Surgical consultation and correlation with clinical exam recommended to determine further management including possible additional imaging or biopsy.
== END 2023-08-22 14:31 | disposition home or self-care (01) ==
LOC: HO.US 14:30
PROVIDERS: PCP Physician Assistant; Visit Provider Physician Assistant
DX: R22.41 Localized swelling, mass and lump, right lower limb (principal)
CPT/HCPCS: 76882

== ENCOUNTER 2023-08-24 08:25 | Outpatient (REF) | payer OTHER, SELFPAY ==
--- NOTE | 2023-08-24 08:29 | EMG_ITS ---
Left median and ulnar motor and sensory studies were performed. Left median and lateral antecubital brachial and radial sensory studies were performed. A needle examination was performed. IMPRESSION: This study was mostly unremarkable except early left ulnar nerve slowing across elbow. MD CONSUELO Juarez/PENNY / [phone]
== END 2023-08-24 08:26 | disposition home or self-care (01) ==
LOC: HO.NEURO 08:25
PROVIDERS: PCP Physician Assistant; Visit Provider Physician Assistant
DX: G56.22 Lesion of ulnar nerve, left upper limb (principal)
CPT/HCPCS: 95886; 95910

== ENCOUNTER 2023-09-06 08:44 | Outpatient (RCR) | payer OTHER, SELFPAY ==
--- NOTE | 2023-09-06 10:03 | MHC.OT.EP ---
[address] [phone] Occupational Therapy Plan of Care Patient Name: Hossein Beasley Date of Evaluation: 09/06/23 Diagnosis: Left Ulnar Neuropathy Pain Location: Tenderness over dorsal forearm and lateral epicondyle 4/10 resting pain 8/10 sharp pain in left elbow Pain Score: 8 Pain Scale Used: Aggravating Factors: Gripping, heavy use of arm (gym, work, sports) Alleviating Factors: Nighttime Biofreeze Assessment: 37 yo male presents w/ inability to do work tasks due to weakness, pain and numbness in wrist and elbow, worsening over the past few months. He was just starting new job and still under 90 day probation, quit job and was seen by PCP for work-up. Now w/ 09/20/23 referral to [facility] orthopedics for further assessment and follow up w/ PCP next month. Nerve conduction consistent w/ early cubital tunnel syndrome. On assessment today, he presents w/ moderate pain in left elbow, radiating down dorsal forearm and c/o tingling in elbow and hand at nighttime or with general use and movements. Provocative testing is consistent w/ lateral epidondylitis as well as early carpal tunnel and cubital tunnel syndromes. We have discussed modifications and stated on stretching and massage program and milad continue to progress to functional strengthening program through course of therapy. Frequency and Duration: The patient will be seen 2x/wk for 4 weeks Short Term Goals: Ind w/ nighttime positional modifications Pt to trial nighttime orthosis for muscle and nerve relief Good follow through w/ activity modification/joint protection recommendations Ind w/ self massage techniques Long-Term Goals: Pain free at rest and ease w/ nighttime pain Minimal pain w/ bimanual lifting >30lb objects Left gross grasp within 10% of right grasp w/ minimal pain QuickDASH score <25 pts Treatment Plan: Therapeutic Exercise Therapeutic Activity Home Exercise Program Splinting Patient Education Edema Control ADL Training Ultrasound Iontophoresis MHP Cold Packs Joint Mobilization Soft Tissue Mobilization Kinesiotaping Nighttime orthosis Counter force brace Ionto w/ dex for pain and inflammation Electronically Signed By: Jaleesa Willson, OTR/L CHT Please Sign and return to therapist. Thank you once again for your referral.
--- NOTE | 2023-09-21 13:58 | MHC.OT.DC ---
[address] [phone] F: [phone] Occupational Therapy Discharge Note Patient Name: Hossein Beasley Provider: Seb Gomez PA-C Diagnosis: Left Ulnar Neuropathy Date of Evaluation: 09/06/23 Date of Discharge: 09/21/23 Treatments to Date: 1 Cancellations to Date: No Shows to Date: 3 Discharge Status: Visit Non-compliance Discharge Summary: Hossein was referred to OT with left elbow pain and numbness, symptoms and testing consistent with lateral epidondylitis as well as early carpal tunnel and cubital tunnel syndromes. On initial evaluation with discussed activity modification and joint protection, OT was scheduled to progress activity and strengthening, however he has not attended any follow up visits and we will be discharging at this time due to visit non compliance. Electronically Signed By: DEVON Bonilla/Ananya COHEN Reviewed/agree with student documentation: Therapist: Please Sign and return to therapist, thank you for your referral.
== END 2023-09-21 13:58 | disposition home or self-care (01) ==
LOC: HO.OT 08:44
PROVIDERS: PCP Physician Assistant; Visit Provider Physician Assistant
DX: G56.22 Lesion of ulnar nerve, left upper limb (principal)
CPT/HCPCS: 97110; 97140; 97165

== ENCOUNTER 2023-09-14 06:25 | Outpatient (REF) | payer OTHER, SELFPAY ==
[2023-09-14 07:41] LABS: Hematocrit 44.3 % (42.0-52.0); Hemoglobin 14.9 g/dl (14.0-18.0); Mean Corpuscular HGB Conc 33.6 g/dl (31.0-36.0); Mean Corpuscular Hemoglobin 28.6 pg (27.0-33.0); Platelet Count 251 X10*3/uL (160-400); Red Blood Count 5.21 X10*6/uL (4.60-5.80); Red Cell Distribution Width 12.6 % (11.0-16.0); White Blood Count 8.4 X10*3/uL (4.8-10.8)
[2023-09-14 08:17] LABS: Alanine Aminotransferase 46 U/L (0-40); Albumin Level 4.3 g/dL (3.5-5.0); Alkaline Phosphatase 92 U/L (39-117); Anion Gap 12 (12-20); Aspartate Amino Transferase 28 U/L (5-37); Bilirubin Total 0.4 mg/dL (0.0-1.0); Blood Urea Nitrogen 17 mg/dL (9-16); Calcium 9.3 mg/dL (8.4-10.2); Carbon Dioxide 26 mmol/L (22-29); Chloride 106 mmol/L (96-108); Estimated Glomerular Filt Rate > 60; Glucose Fasting 97 mg/dL (60-99); Potassium 4.6 mmol/L (3.3-5.1); Sodium 139 mmol/L (135-145); Total Protein 7.5 g/dL (6.5-8.0)
== END 2023-09-14 06:26 | disposition home or self-care (01) ==
LOC: HO.LAB 06:25
PROVIDERS: PCP Physician Assistant; Visit Provider Physician Assistant
DX: Z13.1 Encounter for screening for diabetes mellitus (principal)
CPT/HCPCS: 36415; 80053; 85027

== ENCOUNTER 2023-10-03 15:03 | Outpatient (AMB) | payer OTHER, SELFPAY ==
--- NOTE | 2023-10-03 15:16 | MHC.PC.OV ---
Vital Signs 10/03/23 15:17 Height 5 ft 5 in Weight 188 lb BMI 31.3 BP 100/66 Blood Pressure Location Lt brachial Position Sitting Pulse 62 Pulse Oximetry (%) 98 Oxygen Delivery Method Room Air Intake Visit Reasons: Annual exam Intake Note: Patient is here today for a physical. Aboriginal Community Council Member Required: No Accompanied by: Self / Same As Patient Allergies No Known Allergies [No Known Allergies*] Allergy (Verified 10/03/23 15:29) Medication List - Last Reconciled 10/03/23 by Seb Gomez PA-C No Known Home Meds Tobacco use date assessed: 08/17/23 Dental Screening Dental Screen Date: 08/17/23 HPI Annual exam HPI Details Patient is a 37-year-old male here today for routine annual physical. . No significant past medical history Concerns--> did have an ultrasound of his right upper thigh that did show a soft tissue mass. MRI was recommended though insurance not covering. Will need x-ray and possible biopsy. .. Left elbow pain: Continues to have left elbow pain though has gotten better over the last several weeks. He is interested in continuing occupational therapy sessions. Of note did have a EMG that did show mild cubital tunnel neuropathy. .. Obesity:? Unfortunately gained weight since last office visit, He does understand his BMI is over 30, Vaccines: Declines COVID vaccine, Needs Tdap though declines today. Laboratory Tests 09/15/21 06/01/22 06/01/22 10:04 09:41 09:41 WBC 12.0 H RBC 5.03 AST 16 ALT 34 Cholesterol 182 Urine Blood Ur Leukocyte Rosamaria ase Chlam trachomat DN A PCR N.gonorrhoeae DNA (PCR) 06/01/22 06/01/22 10:49 10:49 WBC RBC AST ALT Cholesterol Urine Blood Moderate (2+) H Ur Leukocyte Rosamaria ase Moderate (2+) H Chlam trachomat DN A PCR NOT DETECTED N.gonorrhoeae DNA (PCR) NOT DETECTED . [facility] Family History Mother No problems noted. Father No problems noted. Social History (Updated 10/03/23 @ 15:32 by Seb Gomez PA-C) Housing: House Alcohol intake: former Year quit: 2023 Patient Tobacco Use Status: Never used Tobacco e-Cigarette/Vaping Use: Never Used Substance Use Type: Marijuana service: No Current occupational status: unemployed Cognitive needs: No Hearing needs: No Vision needs: No Questionnaire Thrive Questionnaire Date Thrive assessed: 08/17/23 EMILIE-7 AMB Questionnaire EMILIE-7 Date EMILIE - 7 assessed: 08/17/23 Source: Developed by Drs. Xander Garzon, Isha Martinez, Tu Dailey and colleagues, with an educational angella from [employer]. Review of Systems Const Denies body aches, Denies chills, Denies excessive sweating, Denies fatigue, Denies fever(s) and Denies headache(s) Eyes Denies blurry vision ENT Denies dysphagia, Denies vertigo, Denies dizziness, Denies headache(s), Denies hearing loss and Denies tinnitus Card Denies chest pain, Denies chest pain with activity, Denies syncope, Denies irregular heart rhythm and Denies dyspnea Resp Denies chest congestion, Denies cough, Denies hemoptysis, Denies dyspnea and Denies wheezing GI Denies abdominal pain, Denies melena, Denies hematochezia, Denies coffee ground emesis, Denies dysphagia, Denies diarrhea, Denies nausea and Denies vomiting Denies difficulty urinating, Denies dysuria, Denies urinary frequency, Denies urinary hesitancy and Denies urinary urgency Musc Denies arthralgias, Denies limited range of motion, Denies muscle cramps and Denies muscle weakness Skin/Breast Denies rash and Denies skin ulcer Neuro Denies Abnormal speech present, Denies confusion, Denies vertigo, Denies dizziness, Denies syncope, Denies headache(s), Denies memory loss and Denies seizure-like activity Psych Denies anxiety, Denies confusion, Denies depression, Denies memory loss, Denies panic attacks and Denies paranoia Endo Denies excessive sweating, Denies fatigue, Denies flushing, Denies polydipsia and Denies polyuria Aller/Immun Denies wheezing Physical exam (Primary Care) Vital Signs: Last Vital Signs Pulse 62 10/03/23 15:17 BP 100/66 10/03/23 15:17 Pulse Ox 98 10/03/23 15:17 Oxygen Delivery Method Room Air 10/03/23 15:17 BMI result Body Mass Index 31.3 Tobacco/Smoking Status: Tobacco use Status Tobacco use date assessed 08/17/23 10/03/23 15:16 Patient Tobacco Use Status Never used Tobacco 10/03/23 15:32 e-Cigarette/Vaping Use Never Used 10/03/23 15:32 Thrive Assessment: Date of Thrive Assessment Date Thrive assessed 08/17/23 10/03/23 15:16 Const General: cooperative, comfortable, no acute distress, alert and awake; No confusion Orientation/consciousness: oriented to person, oriented to place, patient oriented x3 and No confusion HENMT Head: Yes normocephalic Ears: external ears normal and TM's normal bilaterally Face and sinus: No sinus tenderness Mouth: Normal oral and palatal mucosa present and tongue normal Teeth and gingiva: dentition normal and gingiva normal Throat: Yes posterior oropharynx normal, Yes tonsils normal and Yes uvula midline Eyes Conjunctivae: conjunctivae normal Sclerae: sclerae normal Pupils: Equal, round and reactive pupils present EOM: EOMs intact bilaterally Direct Ophthalmoscopy: No no photophobia Neck Neck: Yes no lymphadenopathy, No tender and Yes no JVD Thyroid: Thyroid normal Carotids: no bruits Chest Chest palpation & inspection: no tenderness Resp Effort & Inspection: normal respiratory effort, no audible wheezes, not labored and no stridor Auscultation: no crackles, no rales, no rhonchi and no wheezes Cardio Jugular venous distension: no JVD Rate: regular rate, not bradycardic and not tachycardic Rhythm: regular rhythm Bruits: no carotid bruits Peripheral pulses: Peripheral pulses 2+ throughout GI Inspection: Yes normal to inspection, No abdominal wall ecchymosis and No visible herniation Palpation (GI): Soft to palpation, nontender, no guarding, not rigid and No hepatosplenomegaly present Auscultation: normoactive bowel sounds General: Yes no CVA tenderness Back/Spine/Pelvis Back: no CVA tenderness and No back tenderness Cervical Spine: cervical ROM normal Thoracic/Lumbar Spine: thoracic and lumbar spine normal to inspection, straight leg raise negative bilaterally, No thoraco-lumbar ROM limited and No lumbar spinal tenderness Skin Lesions: no lesions Rashes: no rashes Wounds: no wounds Neuro General: oriented to person, oriented to place, patient oriented x3, CN's II-XI intact bilaterally and No confusion Cranial nerves: Yes Equal, round and reactive pupils present and Yes Normal accommodation reflex present Cognition (Neuro): normal cognition Speech: No Abnormal speech present Gait exam (Neuro): Normal gait present Motor exam (neuro): 5/5 motor strength present throughout Extrem Right upper extremity: full ROM; no cyanosis Left upper extremity: full ROM; no cyanosis Right lower extremity: no edema Left lower extremity: no edema Psych Appearance: grossly normal Mental Status: mental status grossly normal Affect: normal affect Attitude: cooperative Thought process: Normal thought process present Assessment and Plan Assessment & Plan (1) Annual physical exam: Code(s): Z00.00 - Encounter for general adult medical examination without abnormal findings (2) Cubital tunnel syndrome on left: Code(s): G56.22 - Lesion of ulnar nerve, left upper limb Plan: Did start occupational therapy which was helping his left elbow. He would like to continue occupational therapy. He does continue to go to the gym and is considering a compression sleeve for his left elbow. (3) Lump of right thigh: Code(s): R22.41 - Localized swelling, mass and lump, right lower limb Plan: Continues to have palpable lump over his upper anterior proximal thigh he would like evaluated. He does report when there is cold weather the area does start to get more tender to palpation . Did get ultrasound did show a soft tissue mass of unclear etiology. Will refer to general surgeon for possible biopsy. Orders: Orders OT Evaluation and Treatment 10/03/23 G56.22 - Lesion of ulnar nerve, left upper limb Comprehensive [place]. Panel Fast 11 Months Z13.1 - Encounter for screening for diabetes mellitus Referrals General Surgery Referral R22.41 - Localized swelling, mass and lump, right lower limb Coding Level of Care Code Est Pt Prev Care 18-39y([id number]) Diagnoses Annual physical exam Z00.00 Cubital tunnel syndrome on left G56.22 Lump of right thigh R22.41
[2023-10-03 15:17] VITALS: BP 100/66; PULSE 62; O2SAT 98; BMI 31.3
== END 2023-10-03 15:46 | disposition home or self-care (01) ==
PROVIDERS: Visit Provider Physician Assistant
DX: Z00.00 Encounter for general adult medical examination without abnormal findings (principal); G56.22 Lesion of ulnar nerve, left upper limb; E66.9 Obesity, unspecified; Z68.31 Body mass index [BMI] 31.0-31.9, adult; R22.41 Localized swelling, mass and lump, right lower limb
CPT/HCPCS: 99395

== ENCOUNTER 2023-10-04 08:14 | Outpatient (AMB) | payer OTHER, SELFPAY ==
--- NOTE | 2023-10-04 08:16 | MHC.OFFVIS ---
Vital Signs 10/04/23 08:17 Height 5 ft 5 in Weight 188 lb BMI 31.3 Intake Visit Reasons: HEBREW CANTOR-Lesion of ulnar nerve, left hand Intake Note: Hossein is a 37 year old right hand dominant male who presents today as a new patient for a evaluation for his left hand pain. No hx of injury. Patient reports ongoing pain for many years. He states that his behavioral health technician is weak. Pain is worse when he is lifting heaving equipment. Pain is focused on the volar aspect of the wrist and his moves up to his thumb. Patient finds relief with P.T. Having concerns of his elbow pain that started 1 - 2 months ago. Allergies No Known Allergies [No Known Allergies*] Allergy (Verified 10/04/23 08:23) HPI HPI HEBREW CANTOR-Lesion of ulnar nerve, left hand: Details: 37 yo male presents to the office today for left elbow and hand pain. He denies injury to the elbow or hand. He states he has decreased behavioral health technician of the left hand and his PCP rx PT which is helping. His left elbow pain started about 1-2 months ago. He denies injury. Denies n/t. He states he is unemployed. He works as a instrument and control technician and noticed this did irritate his hands. [facility] Family History Mother No problems noted. Father No problems noted. Social History (Updated 10/04/23 @ 08:24 by Viviana Chapa) Housing: House Alcohol intake: former Year quit: 2023 Patient Tobacco Use Status: Never used Tobacco e-Cigarette/Vaping Use: Never Used Substance Use Type: Marijuana service: No Current occupational status: employed Current occupation: [employer]/ right hand dominant Cognitive needs: No Hearing needs: No Vision needs: No Review of Systems Const All systems reviewed & are unremarkable except as noted in HPI and below Physical Exam Vital Signs: BMI result Body Mass Index 31.3 Const General: cooperative and no acute distress Orientation/consciousness: patient oriented x3 Resp Effort & Inspection: normal respiratory effort and able to speak in complete sentences Cardio Peripheral pulses: Peripheral pulses 2+ throughout Neuro General: patient oriented x3 Extrem Other: Left Elbow skin intact. No erythema or swelling. ROM full without pain. Tenderness over the lateral epicondyle and pain with resisted wrist extension. NVI. Results Reviewed Results Reviewed: IMPRESSION: This study was mostly unremarkable except early left ulnar nerve slowing across elbow. Assessment & Plan Assessment & Plan (1) Left lateral epicondylitis: Code(s): M77.12 - Lateral epicondylitis, left elbow Category: Medical Plan: We discussed options which include OT, NSAIDs and injections, along with modification of activity. He was fit for an arm band on the left elbow. I recommend OT for Iontophoresis, behavioral health technician strength range of motion and ADLs. I explained that this is a condition that can often return with increased activity or overuse. If symptoms persist for over 6 months and are worsening he can contact me for an injection otherwise follow-up as needed. Orders: Orders OT Evaluation and Treatment Today M77.12 - Lateral epicondylitis, left elbow Coding Level of Care Code New Pt Level 3 (54823) Diagnoses Left lateral epicondylitis M77.12
[2023-10-04 08:17] VITALS: BMI 31.3
== END 2023-10-04 08:47 | disposition home or self-care (01) ==
PROVIDERS: PCP Physician Assistant; Visit Provider Physician Assistant
DX: M77.12 Lateral epicondylitis, left elbow (principal)
CPT/HCPCS: 99203

== ENCOUNTER → 2023-10-04 08:14 | Outpatient (BNVA) | payer OTHER, SELFPAY | PROVIDERS: PCP Physician Assistant; Visit Provider Physician Assistant | DX: M77.12 Lateral epicondylitis, left elbow (principal) | CPT/HCPCS: 99202 ==